=== PATIENT | female | born 1980 | race African-American/Black ===

== ENCOUNTER 2016-07-16 16:27 | Emergency (ER) | payer OTHER ==
[~2016-07-16] VITALS: Ht 160 cm; Wt 106.1 kg
[~2016-07-16 16:27] MED LIST: GLYB5TAB9 PO; LISI10TA11 PO; METF500T2 PO
[2016-07-16 16:53] VITALS: BP 132/82
[2016-07-16 21:40] VITALS: BP 127/74
== END 2016-07-16 21:40 | disposition home or self-care (01) ==
LOC: MED 16:27
DX: T38.3X5A Adverse effect of insulin and oral hypoglycemic [antidiabetic] drugs, initial encounter (principal); M25.542 Pain in joints of left hand; M25.541 Pain in joints of right hand; E11.9 Type 2 diabetes mellitus without complications; Y92.89 Other specified places as the place of occurrence of the external cause; K21.9 Gastro-esophageal reflux disease without esophagitis; I10 Essential (primary) hypertension; Z88.0 Allergy status to penicillin; Z91.010 Allergy to peanuts; Z91.018 Allergy to other foods; Z88.8 Allergy status to other drugs, medicaments and biological substances
CPT/HCPCS: 81002; 81025; 82948; 99283

== ENCOUNTER 2017-05-23 15:48 | Emergency (ER) | payer OTHER ==
[~2017-05-23] VITALS: Ht 162.6 cm; Wt 113.9 kg
[2017-05-23 15:57] VITALS: BP 145/82
--- NOTE | 2017-05-23 16:05 | NUR ---
PATIENT PRESENTS TO ED WITH REQUEST FOR MEDICATION REFILL FOR LISINOPRIL 40MG, GLIPIZIDE 10MG BID AND ACTOS 15MG BID HX DM, HTN . DENIES N/V/D; SKIN IS PINK/WARM/DRY; AAOX4 WITH EVEN AND STEADY GAIT; LUNGS CLEAR BL; HR EVEN AND REGULAR; PT DENIES ANY FEVER, CP, SOB, OR COUGH AT THIS TIME; PATIENT STATES PAIN OF 0/10 AT THIS TIME; VSS; PATIENT POSITIONED FOR COMFORT; ER MD MADE AWARE OF PT STATUS.
[2017-05-23 17:22] VITALS: BP 126/81
--- NOTE | 2017-05-23 17:22 | NUR ---
Patient discharged with v/s stable. Written and verbal after care instructions given and explained. Patient alert, oriented and verbalized understanding of instructions. Ambulatory with steady gait. All questions addressed prior to discharge. ID band removed. Patient advised to follow up with PMD. Rx of pioglitazone, glipizide, lisinopril given. Patient educated on indication of medication including possible reaction and side effects. Opportunity to ask questions provided and answered.
== END 2017-05-23 17:22 | disposition home or self-care (01) ==
LOC: MED 15:48
DX: Z76.0 Encounter for issue of repeat prescription (principal); K21.9 Gastro-esophageal reflux disease without esophagitis; E11.9 Type 2 diabetes mellitus without complications; I10 Essential (primary) hypertension; Z88.0 Allergy status to penicillin; Z91.041 Radiographic dye allergy status
CPT/HCPCS: 99283